=== PATIENT | female | born 1990 ===

== ENCOUNTER 2017-10-28 22:38 | Emergency (ER) | payer MEDICAID, OTHER ==
[2017-10-28 22:38] VITALS: BMI 22.5
[2017-10-28 23:01] VITALS: TEMP 98.3
[2017-10-29 00:32] LABS: URINE BACTERIA RARE (<OCC); URINE BILIRUBIN NEGATIVE (NEGATIVE); URINE BLOOD NEGATIVE (NEGATIVE); URINE CLARITY Hazy (Clear); URINE COLOR Yellow (YELLOW); URINE GLUCOSE (UA) NORMAL (Normal); URINE LEUKOCYTE ESTERASE NEG Leu/uL (Negative); URINE PROTEIN NEGATIVE (NEGATIVE); URINE UROBILINOGEN NORMAL mg/dL (0.2-1.0)
--- NOTE | 2017-10-29 01:14 | C.PDOC ---
History Of Present Illness 27 year old female patient with hx of yeast infection presents to the ER with c/ o dysuria and itchiness in vaginal area since last week. Patient reports she took monistat 1 with no relief. Patient was treated 2 weeks ago for UTI with 3 days abx. Patient states these symptoms are similar to her yeast infections. Patient denies fever and chills. Time Seen by Provider: 10/28/17 23:20 Chief Complaint (Nursing): Female Genitourinary History Per: Patient History/Exam Limitations: no limitations Onset/Duration Of Symptoms: Days (x1 week) Current Symptoms Are (Timing): Still Present Past Medical History Reviewed: Historical Data, Nursing Documentation, Vital Signs Vital Signs: Last Vital Signs Temp 98.3 F 10/29/17 01:15 Pulse 72 10/29/17 01:15 Resp 18 10/29/17 01:15 BP 120/72 10/29/17 01:15 Pulse Ox 99 10/29/17 02:55 - [facility] Procedures LOCAL EXCIS BREAST LES (06/12/14) MAMMOGRAPHY NEC (06/12/14) Family History: States: Unknown Family Hx - Social History Hx Alcohol Use: No Hx Substance Use: No Review Of Systems Except As Marked, All Systems Reviewed And Found Negative. Constitutional: Negative for: Fever, Chills Genitourinary: Positive for: Dysuria, Other (vaginal itchiness) Physical Exam - Physical Exam Appears: Well, Non-toxic, No Acute Distress Skin: Normal Color, Warm, Dry Head: Atraumatic Eye(s): bilateral: Normal Inspection Gastrointestinal/Abdominal: Soft, No Tenderness Pelvic: Vaginal Discharge (white), No Cervical Motion Tenderness, Other (vulva erythema with irritation) Neurological/Psych: Oriented x3, Normal Speech Gait: Steady ED Course And Treatment O2 Sat by Pulse Oximetry: 99 (RA) Pulse Ox Interpretation: Normal Progress Note: Impression: vaginal itchiness and dysuria. Plans: -- pyridium. -- UCx. -- UA. Reassess: Patient is resting comfortably. Tolerating PO. Patient is instructed to f/u with OBGYN in 1-2 days. Disposition Counseled Patient/Family Regarding: Diagnosis, Need For Followup, Rx Given - Disposition Disposition: HOME/ ROUTINE Disposition Time: 01:10 Condition: STABLE Additional Instructions: Please follow up with [facility] Wear well ventilated clothing drink fluids return to ER if worse Prescriptions: Fluconazole [Diflucan] 150 mg PO ONCE #1 tab Instructions: Vaginal Yeast Infection (DC) Forms: [facility] ([place]ian) - Clinical Impression Clinical Impression: Vaginal yeast infection - PA / FILLER WIPER / Resident Statement MD/ has reviewed & agrees with the documentation as recorded. - Scribe Statement The provider has reviewed the documentation as recorded by the Scribe Alisha Roca All medical record entries made by the Scribe were at my direction and personally dictated by me. I have reviewed the chart and agree that the record accurately reflects my personal performance of the history, physical exam, medical decision making, and the department course for this patient. I have also personally directed, reviewed, and agree with the discharge instructions and disposition.
[2017-10-29 01:17] VITALS: BP 120/72; PULSE 72; RESP 18
[2017-10-29 02:55] VITALS: O2SAT 99
== END 2017-10-29 01:15 | disposition home or self-care (01) ==
LOC: C.ER 22:38
DX: B37.3 Candidiasis of vulva and vagina (principal)